=== PATIENT | female | born 1935 | race Caucasian/White ===

== ENCOUNTER → 2016-08-20 | Outpatient (CLI) | payer MEDICARE, OTHER ==
[~2016-08-20] MED LIST: ACIP20TA19 PO; ASPI81CH CHEW; ATOR10 PO; CALC600T34 PO; LIPI10TA PO; METO50TA11 PO; OMEG1CAP53 PO; OMEP20TA PO; PRIL20CA9 PO; TAB-TAB PO; TOPR100T PO; TOPR50TA PO
[2016-08-20 13:10] LABS: AUTOMATED NEUTROPHIL # 2.1 TH/MM3 (1.8-7.7); BASOPHIL % 0.4 % (0.0-2.0); EOSINOPHIL # 0.1 TH/MM3 (0-0.4); EOSINOPHIL % 3.4 % (0.0-4.0); HEMATOCRIT 44.3 % (35.0-46.0); HEMO FLAGS DIFF FINAL; LYMPH % 26.5 % (9.0-44.0); MEAN CELL VOLUME 90.6 FL (80.0-100.0); MEAN CORPUSCULAR HEMOGLOBIN 30.5 PG (27.0-34.0); MEAN CORPUSCULAR HGB CONC 33.6 % (32.0-36.0); MONO % 16.4 % (0.0-8.0); NEUT % 53.3 % (16.0-70.0); PLATELET COUNT 124 TH/MM3 (150-450); RED BLOOD COUNT 4.88 MIL/MM3 (4.00-5.30); RED CELL DISTRIBUTION WIDTH 13.3 % (11.6-17.2); WHITE BLOOD COUNT 3.9 TH/MM3 (4.0-11.0)
[2016-08-20 13:38] LABS: ALKALINE PHOSPHATASE 76 U/L (45-117); ALT (GPT) 23 U/L (10-53); ANION GAP 8 MEQ/L (5-15); AST (GOT) 19 U/L (15-37); BICARBONATE 28.4 MEQ/L (21.0-32.0); BLOOD UREA NITROGEN 18 MG/DL (7-18); CHLORIDE 106 MEQ/L (98-107); GLOMERULAR FILTRATION RATE 67 ML/MIN (>89); GLUCOSE,FASTING 102 MG/DL (74-99); HDL CHOLESTEROL 50.6 MG/DL (40.0-60.0); LDL CHOLESTEROL 85 MG/DL (0-99); POTASSIUM 4.7 MEQ/L (3.5-5.1); SODIUM (NA) 142 MEQ/L (136-145); TOTAL BILIRUBIN ADULT 0.5 MG/DL (0.2-1.0)
== END ==
LOC: PLAB 09:54
PROVIDERS: ATTEND Family Medicine
DX: I10 Essential (primary) hypertension (principal); E78.2 Mixed hyperlipidemia; D72.821 Monocytosis (symptomatic)
CPT/HCPCS: 36415; 80053; 80061; 85025

== ENCOUNTER 2016-09-28 19:40 | Emergency (ER) | payer MEDICARE ==
[~2016-09-28] VITALS: Ht 154.9 cm; Wt 65.3 kg
[~2016-09-28 19:40] MED LIST changes: -ASPI81CH CHEW; -LIPI10TA PO; -METO50TA11 PO; -PRIL20CA9 PO; -TOPR100T PO
[2016-09-28 19:45] VITALS: BP_SYST 199; BP_SYST 208; BP_DIAS 102; BP_DIAS 119; PULSE 86; RESP 16; TEMP 98.6; O2SAT 98
[2016-09-28] MEDS ORDERED: LIPI10TA PO (19:53)
[2016-09-28] MEDS ORDERED: TOPR100T PO (19:53)
[2016-09-28] MEDS ORDERED: PRIL20CA9 PO (19:53)
[2016-09-28] MEDS ORDERED: ASPI81CH CHEW (19:54)
[2016-09-28] MEDS ORDERED: METO50TA11 PO (19:54)
--- NOTE | 2016-09-28 20:13 | PD ---
HPI Chief Complaint: Hypertension Time Seen by Provider: 20:01 Travel History International Travel<30 days: No Contact w/Intl Traveler<30days: No Traveled to known affect area: No History of Present Illness HPI This 81-year-old female presents with complaint of high blood pressure. She has a history of hypertension for about 20 years. She is currently on metoprolol XL 100 mg daily. She took an extra half tablet this afternoon because her pressure was up. She has not had any chest pain or shortness of breath. She has no history of diabetes she does have high cholesterol. She has a history of GERD and is on Prilosec. She does take baby aspirin once daily. 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) Endocrine: No GERD: Yes Genitourinary: No Hypertension: Yes Immune Disorder: No Neurologic: No Psychiatric: No Reproductive: No Respiratory: No Seizures: No Tetanus Vaccination: > 5 Years Influenza Vaccination: No ?: Not : 2 Para: 2 Ovarian Cysts: Yes Past Surgical History Appendectomy: Yes Eye Surgery: Yes (BILAT CATERACTS) Hysterectomy: Yes Tonsillectomy: Yes Other Surgery: Yes (PYLONIDAL CYSTS X3) Social History Alcohol Use: No Tobacco Use: No (QUIT 1961) Substance Use: No Allergies-Medications (Allergen,Severity, Reaction): Coded Allergies: Compazine (Verified Allergy, Severe, Seizures, 09/28/16) Reported Meds & Prescriptions Reported Meds & Active Scripts Active Reported Aspirin 81 Mg Chew 81 Mg CHEW DAILY Metoprolol Succinate ER 24 HR (Metoprolol Succinate) 50 Mg Tab 50 Mg PO ONCE Toprol XL (Metoprolol Succinate) 100 Mg Tab 100 Mg PO DAILY Prilosec (Omeprazole) 20 Mg Cap 20 Mg PO DAILY Lipitor (Atorvastatin Calcium) 10 Mg Tab 10 Mg PO DAILY Review of Systems General / Constitutional: No: Fever, Chills Eyes: No: Diploplia, Blurred Vision HENT: No: Headaches, Vertigo Cardiovascular: No: Chest Pain or Discomfort, Palpitations Respiratory: No: Cough, Shortness of Breath Gastrointestinal: No: Diarrhea Genitourinary: No: Urgency, Frequency Musculoskeletal: No: Myalgias Skin: No Rash, No Itching Physical Exam Narrative GENERAL: Well-developed female. She does not appear in distress SKIN: Warm and dry. HEAD: Atraumatic. Normocephalic. EYES: Pupils equal and round. No scleral icterus. No injection or drainage. ENT: No nasal bleeding or discharge. Mucous membranes pink and moist. NECK: Trachea midline. No JVD. CARDIOVASCULAR: Regular rate and rhythm. No murmur appreciated. RESPIRATORY: No accessory muscle use. Clear to auscultation. Breath sounds equal bilaterally. GASTROINTESTINAL: Abdomen soft, non-tender, nondistended. Hepatic and splenic margins not palpable. MUSCULOSKELETAL: No obvious deformities. No clubbing. No cyanosis. No edema. NEUROLOGICAL: Awake and alert. No obvious cranial nerve deficits. Motor grossly within normal limits. Normal speech. PSYCHIATRIC: Appropriate mood and affect; insight and judgment normal. Data Data Last Documented VS Vital Signs Date Time Temp Pulse Resp B/P Pulse Ox O2 Delivery O2 Flow Rate FiO2 09/28/16 21:19 72 153/83 99 Room Air 09/28/16 21:00 16 09/28/16 19:45 98.6 Orders Basic Metabolic Panel (Bmp) (09/28/16 20:10) Clonidine (Catapres) (09/28/16 20:15) Labs Laboratory Tests Test 09/28/16 20:35 Sodium Level 138 MEQ/L Potassium Level 4.0 MEQ/L Chloride Level 102 MEQ/L Carbon Dioxide Level 27.3 MEQ/L Anion Gap 9 MEQ/L Blood Urea Nitrogen 19 MG/DL Creatinine 0.88 MG/DL Estimat Glomerular Filtration 62 ML/MIN Rate Random Glucose 129 MG/DL Calcium Level 9.0 MG/DL [facility] Medical Decision Making Medical Screen Exam Complete: Yes Emergency Medical Condition: Yes Medical Record Reviewed: Yes Differential Diagnosis Differential includes hypertension, electrolyte imbalance, renal insufficiency Narrative Course Basic metabolic profile is normal. Patient was given clonidine with good response. I have recommended to her that she take one and a half tablets of 100 mg metoprolol daily . She is to follow-up with Dr. Dubose Diagnosis Primary Impression: Hypertension Disposition: 01 DISCHARGE HOME Condition: Stable Christopher Graham MD Sep 28, 2016 20:13
[2016-09-28 20:15] VITALS: BP 223/96; PULSE 87; RESP 16; O2SAT 99
[2016-09-28] MEDS ORDERED: cloNIDine HCL 0.1 MG TAB PO ONE (20:15)
[2016-09-28 20:57] LABS: BICARBONATE 27.3 MEQ/L (21.0-32.0)
[2016-09-28 21:00] VITALS: BP 187/102; PULSE 78; RESP 16; O2SAT 99
[2016-09-28 21:19] VITALS: BP 153/83; PULSE 72; O2SAT 99
[2016-09-28 22:00] VITALS: BP 145/73
[2016-09-29] MEDS ORDERED: METO50TA11 PO (20:35)
== END 2016-09-28 22:03 | disposition home or self-care (01) ==
LOC: PHED 19:40
DX: I10 Essential (primary) hypertension (principal); E78.00 Pure hypercholesterolemia, unspecified; H91.91 Unspecified hearing loss, right ear; Z79.82 Long term (current) use of aspirin; Z79.899 Other long term (current) drug therapy; Z87.19 Personal history of other diseases of the digestive system; Z87.39 Personal history of other diseases of the musculoskeletal system and connective tissue; Z86.79 Personal history of other diseases of the circulatory system; Z87.42 Personal history of other diseases of the female genital tract; Z87.891 Personal history of nicotine dependence
CPT/HCPCS: 80048; 99283

== ENCOUNTER 2016-09-29 20:06 | Emergency (ER) | payer MEDICARE ==
[~2016-09-29] VITALS: Ht 154.9 cm; Wt 64.0 kg
[~2016-09-29 20:06] MED LIST changes: -ACIP20TA19 PO; +ASPI81CH CHEW; -ATOR10 PO; -CALC600T34 PO; +LIPI10TA PO; +METO50TA11 PO; -OMEG1CAP53 PO; -OMEP20TA PO; +PRIL20CA9 PO; -TAB-TAB PO; +TOPR100T PO; -TOPR50TA PO
[2016-09-29 20:07] VITALS: BP 169/91; PULSE 80; RESP 18; TEMP 99; O2SAT 95
[2016-09-29 20:33] VITALS: BP 189/78; PULSE 82; RESP 16; O2SAT 96
[2016-09-29] MEDS ORDERED: METO50TA11 PO (20:35)
--- NOTE | 2016-09-29 20:54 | PD ---
HPI Chief Complaint: Hypertension Time Seen by Provider: 20:23 Travel History International Travel<30 days: No Contact w/Intl Traveler<30days: No Traveled to known affect area: No History of Present Illness HPI The patient is a 81-year-old female with a history of hypertension. She got a new blood pressure machine and [facility] and states her blood pressure is very high at home. She goes by use of over 200 systolic and over 100 diastolic. When she comes in the emergency department her blood pressure is 169/91. She had a headache this morning that this is resolved. She has no headache now, no shortness of breath, no chest pain, no abdominal pain and no focal neurologic change. She was seen yesterday for her high blood pressure and was given a clonidine in the emergency department and sent home being told to take 150 mg metoprolol in the morning rather than her usual 100. She did take 150 mg metoprolol this morning. 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) Endocrine: No GERD: Yes Genitourinary: No Hypertension: Yes Immune Disorder: No Neurologic: No Psychiatric: No Reproductive: No Respiratory: No Seizures: No ?: Not : 2 Para: 2 Ovarian Cysts: Yes Past Surgical History Appendectomy: Yes Eye Surgery: Yes (BILAT CATERACTS) Hysterectomy: Yes Tonsillectomy: Yes Other Surgery: Yes (PYLONIDAL CYSTS X3) Social History Alcohol Use: No Tobacco Use: No (QUIT 1961) Substance Use: No Allergies-Medications (Allergen,Severity, Reaction): Coded Allergies: Compazine (Verified Allergy, Severe, Seizures, 09/29/16) Reported Meds & Prescriptions Reported Meds & Active Scripts Active Reported Metoprolol Succinate ER 24 HR (Metoprolol Succinate) 50 Mg Tab 50 Mg PO DAILY Aspirin 81 Mg Chew 81 Mg CHEW DAILY Metoprolol Succinate ER 24 HR (Metoprolol Succinate) 50 Mg Tab 50 Mg PO ONCE Toprol XL (Metoprolol Succinate) 100 Mg Tab 100 Mg PO DAILY Prilosec (Omeprazole) 20 Mg Cap 20 Mg PO DAILY Lipitor (Atorvastatin Calcium) 10 Mg Tab 10 Mg PO DAILY Review of Systems Except as stated in HPI: all other systems reviewed are Neg Physical Exam Narrative GENERAL: The patient is alert, oriented 3 in no apparent distress. Her vital signs show blood pressure 169/91 with repeat 189/78. The rest the vital signs are normal. SKIN: Warm and dry. HEAD: Atraumatic. Normocephalic. EYES: Pupils equal and round. No scleral icterus. No injection or drainage. ENT: No nasal bleeding or discharge. Mucous membranes pink and moist. NECK: Trachea midline. No JVD. CARDIOVASCULAR: Regular rate and rhythm. No murmur appreciated. RESPIRATORY: No accessory muscle use. Clear to auscultation. Breath sounds equal bilaterally. GASTROINTESTINAL: Abdomen soft, non-tender, nondistended. Hepatic and splenic margins not palpable. MUSCULOSKELETAL: No obvious deformities. No clubbing. No cyanosis. No edema. NEUROLOGICAL: Awake and alert. No obvious cranial nerve deficits. Motor grossly within normal limits. Normal speech. PSYCHIATRIC: Appropriate mood and affect; insight and judgment normal. Data Data Last Documented VS Vital Signs Date Time Temp Pulse Resp B/P Pulse Ox O2 Delivery O2 Flow Rate FiO2 09/29/16 20:33 82 16 189/78 96 Room Air 09/29/16 20:07 99.0 MDM Medical Decision Making Medical Screen Exam Complete: Yes Emergency Medical Condition: Yes Medical Record Reviewed: Yes Differential Diagnosis Hypertension poor control, anxiety related blood pressure, home blood pressure machine not working, Narrative Course The patient may have anxiety related blood pressure. Her home blood pressure machine may not be giving accurate results. Nevertheless, the patient at this time has asymptomatic elevated blood pressure which seems to be resolving with rest. The blood pressure at 9:09 PM is 162/77. The patient was not given any medication here in the emergency department. The patient appears to improve her blood pressure with relaxation and her home blood pressure cuff may be giving her spurious readings. Plan: The patient should follow-up with her primary care physician, Dr. Dubose , as soon as possible. She is to take 200 of her metoprolol XL in the morning. Diagnosis Primary Impression: Hypertension Additional Instructions: Take 200 mg metoprolol every morning and follow-up with Dr. Dubose. If you get dizzy when you stand up, cut back on the metoprolol to 100 every morning as originally prescribed. Med/Other Pt SpecificInfo: Existing Med Changed Disposition: DISCHARGE HOME Condition: Stable Solomon Sabillon MD Sep 29, 2016 20:54
[2016-09-29 21:10] VITALS: BP 162/77; PULSE 72; RESP 16; O2SAT 99
[2016-09-29 21:19] VITALS: BP 162/77
== END 2016-09-29 21:20 | disposition home or self-care (01) ==
LOC: PHED 20:06
DX: I10 Essential (primary) hypertension (principal); E78.00 Pure hypercholesterolemia, unspecified; Z87.891 Personal history of nicotine dependence
CPT/HCPCS: 99283

== ENCOUNTER → 2016-10-18 | Outpatient (CLI) | payer MEDICARE ==
[2016-10-18 13:52] LABS: ALKALINE PHOSPHATASE 72 U/L (45-117); ALT (GPT) 24 U/L (10-53); ANION GAP 7 MEQ/L (5-15); AST (GOT) 23 U/L (15-37); BICARBONATE 33.3 MEQ/L (21.0-32.0); BLOOD UREA NITROGEN 20 MG/DL (7-18); CHLORIDE 95 MEQ/L (98-107); GLOMERULAR FILTRATION RATE 70 ML/MIN (>89); GLUCOSE,FASTING 110 MG/DL (74-99); SODIUM (NA) 135 MEQ/L (136-145); TOTAL BILIRUBIN ADULT 0.4 MG/DL (0.2-1.0)
== END ==
LOC: PLAB 08:14
PROVIDERS: ATTEND Family Medicine
DX: I10 Essential (primary) hypertension (principal); H53.2 Diplopia
CPT/HCPCS: 36415; 80053

== ENCOUNTER 2016-10-31 12:35 | Day surgery (SDC) | payer MEDICARE ==
[2016-10-31 14:20] VITALS: BP 191/88; PULSE 66; RESP 16; TEMP 97.8; O2SAT 98
[2016-10-31 14:35] VITALS: BP 182/82; PULSE 68; O2SAT 98
[2016-10-31 14:50] VITALS: BP 179/81; PULSE 69; O2SAT 99
[2016-10-31] MEDS ORDERED: SODIUM BICARBONATE 8.4% INJ 50 ML ONE (16:56)
[2016-10-31] MEDS ORDERED: LIDOCAINE HCL 1% PF 30 ML VIAL ONE (16:56)
--- NOTE | 2016-10-31 17:43 | RADRPT ---
EXAM DATE/TIME: 10/31/2016 13:36 [facility] COMPARISON: No previous studies available for comparison. EXTERNAL COMPARISON: [facility], US THYROID, Oct 19 2016. INDICATIONS : Right thyroid nodule. MEDICAL HISTORY : Gastroesophageal reflux disease. Cerebrovascular disease. Osteoporosis. Hypertension. Hyperlipidemia . Benign neoplasm of abdomen. Gastritis. SURGICAL HISTORY : Hysterectomy. Appendectomy. Shoulder surgery. Cateracts. ENCOUNTER: Initial ACUITY: 2 weeks PAIN SCORE: 0/10 LOCATION: Right neck ORGAN: Right thyroid lobe SPECIMENS: Three fine needle aspirate(s) submitted for pathologic evaluation. DEVICE: 22 gauge needle Post procedure scanning reveals no hematoma or other complication. The possibility does exist that the tissue obtained will be non-diagnostic. If the sample is non-toma gnostic a repeat biopsy or surgical biopsy may need to be performed. TECHNIQUE: 1. Ultrasound guidance for needle biopsy. 2. Needle biopsy. The risks, benefits, and alternatives to ultrasound guided needle biopsy were explained to the patien t in detail including the risk of bleeding and infection. Written and verbal informed consent was ob tained. Under direct ultrasound visualization 3 aspirates were obtained. The patient tolerated the procedure well and left the ultrasound suite in stable condition. CONCLUSION: Uncomplicated ultrasound guided needle biopsy of the nodule in the right lobe.. Yunior Starks MD FACR on October 31, 2016 at 17:40 Board Certified Radiologist. This report was verified electronically.
== END 2016-10-31 14:45 | disposition home or self-care (01) ==
LOC: HRAD 12:35 → HRIP 12:38 → HRAD 14:45
PROVIDERS: ATTEND Internal Medicine Hematology & Oncology
DX: E04.1 Nontoxic single thyroid nodule (principal); I10 Essential (primary) hypertension; E78.5 Hyperlipidemia, unspecified; K21.9 Gastro-esophageal reflux disease without esophagitis; M81.0 Age-related osteoporosis without current pathological fracture
CPT/HCPCS: 10022; 76942; 88172; 88173

== ENCOUNTER → 2017-01-17 | Outpatient (CLI) | payer MEDICARE ==
[2017-01-17 13:24] LABS: AUTOMATED NEUTROPHIL # 2.3 TH/MM3 (1.8-7.7); BASOPHIL % 0.5 % (0.0-2.0); EOSINOPHIL # 0.1 TH/MM3 (0-0.4); EOSINOPHIL % 2.7 % (0.0-4.0); HEMATOCRIT 44.2 % (35.0-46.0); HEMO FLAGS DIFF FINAL; LYMPH % 23.7 % (9.0-44.0); MEAN CELL VOLUME 89.3 FL (80.0-100.0); MEAN CORPUSCULAR HEMOGLOBIN 30.6 PG (27.0-34.0); MEAN CORPUSCULAR HGB CONC 34.3 % (32.0-36.0); MONO % 18.5 % (0.0-8.0); NEUT % 54.6 % (16.0-70.0); PLATELET COUNT 148 TH/MM3 (150-450); RED BLOOD COUNT 4.95 MIL/MM3 (4.00-5.30); RED CELL DISTRIBUTION WIDTH 13.4 % (11.6-17.2); WHITE BLOOD COUNT 4.3 TH/MM3 (4.0-11.0)
[2017-01-17 13:27] LABS: ANION GAP 8 MEQ/L (5-15); BICARBONATE 32.2 MEQ/L (21.0-32.0); BLOOD UREA NITROGEN 20 MG/DL (7-18); CHLORIDE 101 MEQ/L (98-107); POTASSIUM 4.4 MEQ/L (3.5-5.1); SODIUM (NA) 141 MEQ/L (136-145)
[2017-01-17 13:45] LABS: ALKALINE PHOSPHATASE 73 U/L (45-117); ALT (GPT) 26 U/L (10-53); AST (GOT) 28 U/L (15-37); GLOMERULAR FILTRATION RATE 74 ML/MIN (>89); GLUCOSE,FASTING 112 MG/DL (74-99); LDL CHOLESTEROL 85 MG/DL (0-99); TOTAL BILIRUBIN ADULT 0.5 MG/DL (0.2-1.0)
== END ==
LOC: PLAB 10:15
PROVIDERS: ATTEND Family Medicine
DX: E78.5 Hyperlipidemia, unspecified (principal); I10 Essential (primary) hypertension; R00.2 Palpitations
CPT/HCPCS: 36415; 80053; 80061; 84443; 85025

== ENCOUNTER 2017-04-20 13:33 | Emergency (ER) | payer MEDICARE ==
[2017-04-20 13:36] VITALS: BP 152/73; PULSE 76; RESP 20; TEMP 98.9; O2SAT 96
[2017-04-20] MEDS ORDERED: AMLO2.5T PO (13:49)
[2017-04-20] MEDS ORDERED: PRIL20TA2 (13:49)
[2017-04-20] MEDS ORDERED: AZIT250T3 PO (14:02)
--- NOTE | 2017-04-20 14:06 | PD ---
HPI Chief Complaint: Cold / Flu Symptoms Time Seen by Provider: 13:48 Travel History International Travel<30 days: No Contact w/Intl Traveler<30days: No Traveled to known affect area: No History of Present Illness HPI 82-year-old female presents emergency department for evaluation of cough 5 days. Patient reports she had sore throat, nasal congestion approximately 7 days ago. He reports his symptoms resolved and she developed this cough with occasional clear/yellow sputum. She denies fever, chills, chest pain, shortness of breath. He reports she's had similar symptoms in the past with bronchitis. Symptom severity is moderate. No aggravating or alleviating factors. PFSH Past Medical History Hx Anticoagulant Therapy: Yes (ASA) Arthritis: Yes Blood Disorders: No Cancer: No Cardiovascular Problems: Yes (HTN) High Cholesterol: Yes Diminished Hearing: Yes ([place] RIGHT EAR) Endocrine: No GERD: Yes Genitourinary: No Hypertension: Yes Immune Disorder: No Neurologic: No Psychiatric: No Reproductive: No Respiratory: No Immunizations Current: Yes Seizures: No : 2 Para: 2 Ovarian Cysts: Yes Past Surgical History Appendectomy: Yes Eye Surgery: Yes (BILAT CATERACTS) Hysterectomy: Yes Tonsillectomy: Yes Other Surgery: Yes (PYLONIDAL CYSTS X3) Social History Alcohol Use: No Tobacco Use: No (QUIT 1961) Substance Use: No Allergies-Medications (Allergen,Severity, Reaction): Coded Allergies: prochlorperazine (Unverified Allergy, Severe, Seizures, 03/12/17) Reported Meds & Prescriptions Reported Meds & Active Scripts Active Reported Amlodipine (Amlodipine Besylate) 2.5 Mg Tab 2.5 Mg PO DAILY Prilosec (Omeprazole Magnesium) 20 Mg Tab Metoprolol Succinate ER 24 HR (Metoprolol Succinate) 50 Mg Tab 50 Mg PO DAILY Aspirin 81 Mg Chew 81 Mg CHEW DAILY Metoprolol Succinate ER 24 HR (Metoprolol Succinate) 50 Mg Tab 50 Mg PO ONCE Toprol XL (Metoprolol Succinate) 100 Mg Tab 100 Mg PO DAILY Lipitor (Atorvastatin Calcium) 10 Mg Tab 10 Mg PO DAILY Review of Systems Except as stated in HPI: all other systems reviewed are Neg General / Constitutional: No: Fever Eyes: No: Visual changes HENT: No: Headaches Cardiovascular: No: Chest Pain or Discomfort Respiratory: Positive: Cough Physical Exam Narrative GENERAL: Well-nourished, well-developed patient. Patient is well-appearing. SKIN: Focused skin assessment warm/dry. HEAD: Normocephalic. EYES: No scleral icterus. No injection or drainage. NECK: Supple, trachea midline. No JVD or lymphadenopathy. CARDIOVASCULAR: Regular rate and rhythm without murmurs, gallops, or rubs. RESPIRATORY: Breath sounds equal bilaterally. No accessory muscle use. No wheezing rales or rhonchi. GASTROINTESTINAL: Abdomen soft, non-tender, nondistended. MUSCULOSKELETAL: No cyanosis, or edema. BACK: Nontender without obvious deformity. No CVA tenderness. Data Data Last Documented VS Vital Signs Date Time Temp Pulse Resp B/P (MAP) Pulse Ox O2 Delivery O2 Flow Rate FiO2 04/20/17 13:36 98.9 76 20 152/73 (99) 96 MDM Medical Decision Making Medical Screen Exam Complete: Yes Emergency Medical Condition: Yes Differential Diagnosis Bronchitis, pneumonia, URI Narrative Course 82-year-old female with chief complaint of productive cough 5 days. Patient's physical exam is reassuring. She is well-appearing and nontoxic. She is reporting a productive cough without chest pain, shortness of breath or fever or chills. She reports similar symptoms in the past with bronchitis. Patient' s vital signs are stable. She is afebrile. No adventitious breath sounds on exam. Chest x-ray was offered to patient for which she declined. Patient has a harsh bronchial sounding cough observed in the ER. Patient will be treated with a five-day course of azithromycin for bronchitis. Patient is to follow-up with her PCP. Patient verbalizes understanding and agrees to plan Diagnosis Primary Impression: Bronchitis Referrals: Primary Care Physician Additional Instructions: Take the antibiotics as prescribed. Follow-up with her primary doctor for recheck. Return to the emergency department if he developed new or worsening symptoms. Scripts Azithromycin (Azithromycin) 250 Mg Tab 250 MG PO DIRECTED for Infection, #6 TAB 0 Refills Take 2 tabs (500 mg) on day 1 then 1 tab daily x 4 days. Prov: Minnie Carlin 04/20/17 Disposition: 01 DISCHARGE HOME Condition: Stable Minnie Carlin Apr 20, 2017 14:06
== END 2017-04-20 14:13 | disposition home or self-care (01) ==
LOC: PHEFT 13:33
DX: J40 Bronchitis, not specified as acute or chronic (principal); Z87.891 Personal history of nicotine dependence
CPT/HCPCS: 99283

== ENCOUNTER → 2017-05-07 | Outpatient (CLI) | payer MEDICARE ==
[~2017-05-07] MED LIST changes: +AMLO2.5T PO; +AZIT250T3 PO; -PRIL20CA9 PO; +PRIL20TA2
[2017-05-07 13:08] LABS: APTT (PATIENT) 30.9 SEC (24.3-30.1); PROTHROMBIN TIME - PATIENT 10.7 SEC (9.8-11.6)
[2017-05-07 16:46] LABS: AUTOMATED NEUTROPHIL # 2.3 TH/MM3 (1.8-7.7); BASOPHIL % 0.5 % (0.0-2.0); EOSINOPHIL # 0.1 TH/MM3 (0-0.4); EOSINOPHIL % 1.7 % (0.0-4.0); HEMATOCRIT 44.1 % (35.0-46.0); HEMO FLAGS DIFF FINAL; LYMPH % 27.1 % (9.0-44.0); LYMPHOCYTE # 1.2 TH/MM3 (1.0-4.8); MEAN CELL VOLUME 91.4 FL (80.0-100.0); MEAN CORPUSCULAR HEMOGLOBIN 30.7 PG (27.0-34.0); MEAN CORPUSCULAR HGB CONC 33.6 % (32.0-36.0); MONO % 19.1 % (0.0-8.0); NEUT % 51.6 % (16.0-70.0); PLATELET COUNT 151 TH/MM3 (150-450); RED BLOOD COUNT 4.83 MIL/MM3 (4.00-5.30); RED CELL DISTRIBUTION WIDTH 13.7 % (11.6-17.2); WHITE BLOOD COUNT 4.5 TH/MM3 (4.0-11.0)
== END ==
LOC: PLAB 12:14
PROVIDERS: ATTEND Family Medicine
DX: E04.1 Nontoxic single thyroid nodule (principal); Z01.818 Encounter for other preprocedural examination
CPT/HCPCS: 36415; 85025; 85610; 85730

== ENCOUNTER 2017-05-15 12:47 | Day surgery (SDC) | payer MEDICARE ==
[2017-05-15 13:32] VITALS: BP 156/82; PULSE 75; RESP 14; TEMP 98.2; O2SAT 99
[2017-05-15] MEDS ORDERED: LIDOCAINE HCL 1% PF 30 ML VIAL ONE (14:50)
--- NOTE | 2017-05-15 15:32 | RADRPT ---
EXAM DATE/TIME: 05/15/2017 13:38 [facility] COMPARISON: No previous studies available for comparison. EXTERNAL COMPARISON: [facility], US THYROID, Apr 30 2017, October 19, 2016. INDICATIONS : Left thyroid nodules. MEDICAL HISTORY : Hypertension. Hypercholesterolemia. Arthritis. Hearing loss. GERD. Ovarian cysts. Thyroid nodules. An ticoagulant therapy, Aspirin. SURGICAL HISTORY : Tonsillectomy. Appendectomy. Hysterectomy. Bilateral cataracts with prosthesis. Orthopedic surgery, r ight shoulder. Thyroid biopsy. Pylonidal cysts removed x3. Blood transfusions. ENCOUNTER: Subsequent ACUITY: 2 weeks PAIN SCORE: 1/10 LOCATION: Left neck ORGAN: Left thyroid lobe SPECIMENS: Four fine needle aspirate(s) submitted for pathologic evaluation. DEVICE: 22 gauge needle Post procedure scanning reveals no hematoma or other complication. The possibility does exist that the tissue obtained will be non-diagnostic. If the sample is non-toma gnostic a repeat biopsy or surgical biopsy may need to be performed. TECHNIQUE: 1. Ultrasound guidance for needle biopsy. 2. Needle biopsy. The risks, benefits and alternatives to the procedure were explained and verbal and written consent w as obtained. The site was prepped in sterile fashion. Full sterile technique was used, including ca p, mask, sterile gloves and gown and a large sterile sheet. Hand hygiene and 2% chlorhexidine and/or betadine/alcohol prep was utilized per protocol for cutaneous antisepsis. The skin and subcutaneous tissues were infiltrated with local anesthetic solution. Sterile gel and sterile probe cover were u tilized for ultrasound guidance. With the patient on the ultrasound table, images were obtained. The left lobe is diffusely enlarged a nd very heterogeneous containing several nodules. There is a homogeneous echogenic smooth ovoid nodul e in the medial mid gland measuring 1.7 x 0.8 x 1.3 cm. There is a hypoechoic centrally cystic nodule in the mid gland measuring 1.2 x 0.9 x 10 mm. A hypoechoic solid smooth round nodule in the lateral inferior aspect of the left lobe measures 9 x 7 x 8 mm. Based on overall appearance, the decision was made to biopsy the centrally cystic hypoechoic nodule in the mid gland. A needle was advanced into the identified target and the number of specimens as above obtained and zavala bmitted for pathologic evaluation. The patient tolerated the procedure well and left the ultrasound suite in stable condition. CONCLUSION: Uncomplicated ultrasound guided needle biopsy of a 12 mm nodule in the left mid thyroid gland. Gab Ramirez MD on May 15, 2017 at 15:29 Board Certified Radiologist. This report was verified electronically.
== END 2017-05-15 14:25 | disposition home or self-care (01) ==
LOC: HRAD 12:47 → HRIP 12:50 → HRAD 14:25
PROVIDERS: ATTEND Family Medicine
DX: E04.2 Nontoxic multinodular goiter (principal)
CPT/HCPCS: 10022; 76942; 88172; 88173

== ENCOUNTER → 2017-06-25 | Outpatient (CLI) | payer MEDICARE ==
[~2017-06-25] MED LIST changes: +ASPI-516 CHEW; -ASPI81CH CHEW; +METO1TAB9 PO; -METO50TA11 PO
[2017-06-25 13:23] LABS: AUTOMATED NEUTROPHIL # 2.2 TH/MM3 (1.8-7.7); BASOPHIL % 0.4 % (0.0-2.0); EOSINOPHIL # 0.1 TH/MM3 (0-0.4); EOSINOPHIL % 2.2 % (0.0-4.0); HEMATOCRIT 44.1 % (35.0-46.0); HEMO FLAGS DIFF FINAL; LYMPH % 25.8 % (9.0-44.0); LYMPHOCYTE # 1.1 TH/MM3 (1.0-4.8); MEAN CELL VOLUME 91.4 FL (80.0-100.0); MEAN CORPUSCULAR HEMOGLOBIN 30.9 PG (27.0-34.0); MEAN CORPUSCULAR HGB CONC 33.8 % (32.0-36.0); NEUT % 52.6 % (16.0-70.0); PLATELET COUNT 146 TH/MM3 (150-450); RED BLOOD COUNT 4.82 MIL/MM3 (4.00-5.30); RED CELL DISTRIBUTION WIDTH 13.9 % (11.6-17.2); WHITE BLOOD COUNT 4.2 TH/MM3 (4.0-11.0)
[2017-06-25 13:35] LABS: ANION GAP 8 MEQ/L (5-15); AST (GOT) 22 U/L (15-37); BICARBONATE 31.8 MEQ/L (21.0-32.0); BLOOD UREA NITROGEN 17 MG/DL (7-18); CHLORIDE 99 MEQ/L (98-107); GLOMERULAR FILTRATION RATE 77 ML/MIN (>89); GLUCOSE,FASTING 100 MG/DL (74-99); POTASSIUM 3.1 MEQ/L (3.5-5.1); SODIUM (NA) 139 MEQ/L (136-145)
[2017-06-25 13:46] LABS: ALKALINE PHOSPHATASE 66 U/L (45-117); ALT (GPT) 26 U/L (10-53); HDL CHOLESTEROL 49.5 MG/DL (40.0-60.0); LDL CHOLESTEROL 84 MG/DL (0-99); TOTAL BILIRUBIN ADULT 0.6 MG/DL (0.2-1.0)
[2017-06-25 17:32] LABS: HEMOGLOBIN A1b 2.1 %; HEMOGLOBIN Ao 83.9 %; HEMOGLOBIN LA1C 2.2 %; HEMOGLOBIN P3 4.3 %
== END ==
LOC: PLAB 10:42
PROVIDERS: ATTEND Family Medicine
DX: I10 Essential (primary) hypertension (principal); E78.5 Hyperlipidemia, unspecified; D21.4 Benign neoplasm of connective and other soft tissue of abdomen; E04.1 Nontoxic single thyroid nodule; R73.01 Impaired fasting glucose
CPT/HCPCS: 36415; 80053; 80061; 83036; 84443; 85025

== ENCOUNTER → 2018-01-06 | Outpatient (CLI) | payer MEDICARE ==
[2018-01-06 13:35] LABS: BASOPHIL % 0.5 % (0.0-2.0); EOSINOPHIL # 0.1 TH/MM3 (0-0.4); EOSINOPHIL % 2.9 % (0.0-4.0); HEMATOCRIT 41.5 % (35.0-46.0); HEMOGLOBIN 14.1 GM/DL (11.6-15.3); LYMPH % 33.3 % (9.0-44.0); LYMPHOCYTE # 1.4 TH/MM3 (1.0-4.8); MEAN PLATELET VOLUME 8.7 FL (7.0-11.0); MONO % 16.5 % (0.0-8.0); MONOCYTE # 0.7 TH/MM3 (0-0.9); NEUT % 46.8 % (16.0-70.0); PLATELET COUNT 163 TH/MM3 (150-450); RED BLOOD COUNT 4.55 MIL/MM3 (4.00-5.30); RED CELL DISTRIBUTION WIDTH 13.3 % (11.6-17.2); WHITE BLOOD COUNT 4.2 TH/MM3 (4.0-11.0)
[2018-01-06 13:58] LABS: ALBUMIN 3.6 GM/DL (3.4-5.0); AST (GOT) 20 U/L (15-37); BLOOD UREA NITROGEN 25 MG/DL (7-18); CALCIUM 9.3 MG/DL (8.5-10.1); CHLORIDE 103 MEQ/L (98-107); CHOLESTEROL 172 MG/DL (120-200); CREATININE 0.86 MG/DL (0.50-1.00); GLOMERULAR FILTRATION RATE 63 ML/MIN (>89); GLUCOSE,FASTING 108 MG/DL (74-99); SODIUM (NA) 140 MEQ/L (136-145)
[2018-01-06 14:10] LABS: ALKALINE PHOSPHATASE 69 U/L (45-117); ALT (GPT) 19 U/L (10-53); CHOLESTEROL/ HDL RATIO 4.75 RATIO; HDL CHOLESTEROL 36.2 MG/DL (40.0-60.0); LDL CHOLESTEROL 77 MG/DL (0-99); TOTAL BILIRUBIN ADULT 0.5 MG/DL (0.2-1.0); TOTAL PROTEIN 7.4 GM/DL (6.4-8.2); TRIGLYCERIDES 292 MG/DL (42-150)
== END ==
LOC: PLAB 09:38
PROVIDERS: ATTEND Family Medicine
DX: I10 Essential (primary) hypertension (principal); E04.1 Nontoxic single thyroid nodule; E78.2 Mixed hyperlipidemia; D72.821 Monocytosis (symptomatic)
CPT/HCPCS: 36415; 80053; 80061; 84443; 85025